=== PATIENT | female | born 1980 | race African-American/Black ===

== ENCOUNTER 2020-05-30 14:31 | Emergency (ER) | payer OTHER ==
[~2020-05-30] VITALS: Ht 157.5 cm; Wt 78.9 kg
[2020-05-30 16:20] VITALS: BP 154/89
== END 2020-05-30 17:16 | disposition home or self-care (01) ==
LOC: ER 14:31
DX: U07.1 COVID-19 (principal)
CPT/HCPCS: 36415; 71045; 87426

== ENCOUNTER 2021-02-08 04:13 | Emergency (ER) | payer OTHER ==
[~2021-02-08] VITALS: Ht 157.5 cm; Wt 70.3 kg
[2021-02-08] MEDS ORDERED: ONDANSETRON ODT 4 MG TAB PO ONE (07:15)
[2021-02-08] MEDS ORDERED: SUMAtriptan SUCCINATE 6 MG/0.5 ML VL SC ONE (07:15)
[2021-02-08] MEDS ORDERED: KETOROLAC TROMETH 60MG/2ML VIAL IM ONE (07:15)
[2021-02-08 07:50] VITALS: BP 139/77
== END 2021-02-08 08:43 | disposition home or self-care (01) ==
LOC: ER 04:13
DX: G43.909 Migraine, unspecified, not intractable, without status migrainosus (principal)
CPT/HCPCS: 96372; 99284; J1885; J3030; Q0162